=== PATIENT | male | born 1955 | race American Indian/Alaskan Native ===

== ENCOUNTER 2024-05-22 14:12 | Emergency (ER) | payer OTHER ==
[2024-05-22] MEDS: diphenhydrAMINE 50 MG Cap PO ONE (14:52)
[2024-05-22] MEDS: predniSONE 20 MG Tab PO ONE (14:53)
== END 2024-05-22 16:25 | disposition home or self-care (01) ==
LOC: DL.ED 14:12
DX: L57.8 Other skin changes due to chronic exposure to nonionizing radiation (principal); I25.2 Old myocardial infarction; Z95.1 Presence of aortocoronary bypass graft; Z87.891 Personal history of nicotine dependence
CPT/HCPCS: 99284; J7512; Q0163